=== PATIENT | female | born 1990 | race African-American/Black ===

== ENCOUNTER 2016-11-25 11:18 | Emergency (ER) | payer MEDICAID ==
[~2016-11-25] VITALS: Ht 157.5 cm; Wt 51.0 kg
[~2016-11-25 11:18] MED LIST: MACR100C PO; PRENCAP10 PO; [UNRECOGNIZED DRUG - CODE] PV
[2016-11-25 11:20] VITALS: BP 138/92; PULSE 86; RESP 15; TEMP 98.2; O2SAT 98
--- NOTE | 2016-11-25 12:23 | PD ---
HPI Chief Complaint: ENT Complaint Time Seen by Provider: 12:21 Travel History International Travel<30 days: No Contact w/Intl Traveler<30days: No Traveled to known affect area: No History of Present Illness HPI Patient comes in complaining of generalized weakness ongoing for 5 days and sore throat that began last night. Patient reports that her infant son was diagnosed with the flu yesterday. Patient denies any fevers, nausea, vomiting, chest pain, shortness of breath, headache, neck pain, diarrhea, abdominal pain, or breast-feeding. Patient denies any radiation of her throat pain describes as just a funny feeling. Denies doing anything for this. Denies anything making it better or worse. PFSH Past Medical History Medical History: Denies Significant Hx Diminished Hearing: No ?: Not LMP: 11/2016 : 1 Para: 0 Miscarriage: 0 : 0 Social History Alcohol Use: No Tobacco Use: No Substance Use: No (PT DENIES) Allergies-Medications (Allergen,Severity, Reaction): Coded Allergies: No Known Allergies (Unverified , 11/25/16) Reported Meds & Prescriptions Reported Meds & Active Scripts Active Tamiflu (Oseltamivir Phosphate) 75 Mg Cap 75 Mg PO BID 5 Days Review of Systems Except as stated in HPI: all other systems reviewed are Neg Physical Exam Narrative GENERAL: Well-developed, well nourished, in no acute distress, and non-ill appearing. SKIN: Warm and dry. HEAD: Atraumatic. Normocephalic. EYES: Pupils equal and round. EOMI. No scleral icterus. No injection or drainage. ENT: No nasal bleeding or discharge. Mucous membranes pink and moist. Tympanic membranes pearly duff bilaterally. Posterior pharynx erythematous without exudate. Uvula is midline. No tenderness to facial sinuses to palpation. NECK: Trachea midline. No cervical lymphadenopathy. Supple. No nuclear rigidity. CARDIOVASCULAR: Regular rate and rhythm. No murmur appreciated. RESPIRATORY: No accessory muscle use. No respiratory distress. Clear to auscultation. Breath sounds equal bilaterally. MUSCULOSKELETAL: No obvious deformities. No clubbing. No cyanosis. No edema. Full range of motion. NEUROLOGICAL: Awake and alert. No obvious cranial nerve deficits. Motor grossly within normal limits. Normal speech. PSYCHIATRIC: Appropriate mood and affect; insight and judgment normal. Data Data Last Documented VS Vital Signs Date Time Temp Pulse Resp B/P Pulse Ox O2 Delivery O2 Flow Rate FiO2 11/25/16 11:20 98.2 86 15 138/92 98 Orders Group A Rapid Strep Screen (11/25/16 12:20) Strep Culture (Group A) (11/25/16 12:30) MDM Medical Decision Making Medical Screen Exam Complete: Yes Emergency Medical Condition: Yes Differential Diagnosis Influenza, strep pharyngitis, viral pharyngitis, other Narrative Course Patient looks great. Patients symptom complex is consistent with Influenza, or flu-like illness. The patient is tolerating fluids and is well hydrated. There is no evidence to suggest secondary infection (pneumonia, sepsis/bacteremia, etc.) at this time. I discussed with the patient, diagnosis, and plan of care and to follow up with the patients primary physician. I discussed with the patient regarding testing, even if rapid influenza negative, I would suspect false negative. I discussed with the patient initiating Tamiflu and the patient agreed with plan. The patient was instructed to return if the worsens in anyway , especially if not tolerating fluids, increased pain or swelling, difficulty swallowing or breathing, or as needed. The patient agreed with plan. Patient in no obvious distress upon re-evaluation. All pertinent laboratory result(s) discussed with patient. Patient was asked if they wanted to speak to my attending, which the patient did not wish to do at this time. Any questions/ concerns in reference to patient diagnosis/condition discussed and clarified prior to patient's discharge. Reinforced sheer importance of close follow up with patient's primary physician or primary care clinic. Instructed patient to return to ED immediately, if symptoms return/worsen. Pt showed understanding of above instructions. Further instructions and recommendations were detailed in discharge paperwork. Pt ambulated without difficulty out of ED at discharge. Diagnosis Primary Impression: Influenza Patient Instructions: General Instructions, Influenza (DC) Additional Instructions: Follow-up with your primary care physician in 2-3 days for reevaluation. Take all medication as prescribed. Use [id number] Tylenol and/or ibuprofen as needed for pain and/or fevers. Follow instructions on the packaging. Drink plenty of non-caffeinated and nonalcoholic fluids. Return to the emergency department if symptoms get worse. Med/Other Pt SpecificInfo: Prescription(s) given Scripts Oseltamivir (Tamiflu)75 Mg Cap75 Mg PO BID 5 Days Ref 0 Prov:Brina Merino MD 11/25/16 Disposition: 01 DISCHARGE HOME Condition: Stable Chaim Macias Nov 25, 2016 12:23
[2016-11-25] MEDS ORDERED: OSEL75 PO (13:24)
== END 2016-11-25 13:35 | disposition home or self-care (01) ==
LOC: NEPB 11:18
DX: J11.1 Influenza due to unidentified influenza virus with other respiratory manifestations (principal)
CPT/HCPCS: 87081; 87880; 99283

== ENCOUNTER 2017-04-22 20:57 | Emergency (ER) | payer MEDICAID ==
[~2017-04-22] VITALS: Ht 157.5 cm; Wt 51.0 kg
[~2017-04-22 20:57] MED LIST changes: -MACR100C PO; +OSEL75 PO; -PRENCAP10 PO; -[UNRECOGNIZED DRUG - CODE] PV
[2017-04-22 20:59] VITALS: BP 138/59; PULSE 86; RESP 16; TEMP 98.6; O2SAT 98
--- NOTE | 2017-04-22 21:38 | PD ---
HPI Chief Complaint: Injury Time Seen by Provider: 21:36 Travel History International Travel<30 days: No Contact w/Intl Traveler<30days: No Traveled to known affect area: No History of Present Illness HPI Patient comes in complaining of right wrist pain began 2 hours prior to arrival. Patient denies any known injury. Patient describes pain as feeling as though someone hit her in the wrist but denies any trauma. Pain radiates into the hand. Pain is worse with certain movement. Patient denies anything making it better. Patient denies doing anything for this prior coming to the emergency department. [facility] Past Medical History Medical History: Denies Significant Hx Diminished Hearing: No Immunizations Current: Yes Tetanus Vaccination: < 5 Years Influenza Vaccination: Yes ?: Unknown LMP: 04/15/17 : 1 Para: 1 Miscarriage: 0 : 0 Past Surgical History Surgical History: No Previous Surgery Social History Alcohol Use: No Tobacco Use: No Substance Use: No Allergies-Medications (Allergen,Severity, Reaction): Coded Allergies: No Known Allergies (Unverified , 04/22/17) Reported Meds & Prescriptions Reported Meds & Active Scripts Active Tamiflu (Oseltamivir Phosphate) 75 Mg Cap 75 Mg PO BID 5 Days Review of Systems Except as stated in HPI: all other systems reviewed are Neg Physical Exam Narrative GENERAL: Well-developed, well nourished, in no acute distress, and non-ill appearing. SKIN: Focused skin assessment warm and dry. HEAD: Atraumatic. Normocephalic. EYES: Pupils equal and round. EOMI. No scleral icterus. No injection or drainage. ENT: No nasal bleeding or discharge. Mucous membranes pink and moist. NECK: Trachea midline. Supple. No nuclear rigidity. CARDIOVASCULAR: Radial pulses 2+, equal, and intact bilaterally. Capillary refill less than 2 seconds. RESPIRATORY: No accessory muscle use. No respiratory distress. MUSCULOSKELETAL: No obvious deformities. No clubbing. No cyanosis. No edema. Full range of motion. Negative Tinel and Phalen's test. NEUROLOGICAL: Awake and alert. No obvious cranial nerve deficits. Motor grossly within normal limits. Normal speech. PSYCHIATRIC: Appropriate mood and affect; insight and judgment normal. Data Data Last Documented VS Vital Signs Date Time Temp Pulse Resp B/P Pulse Ox O2 Delivery O2 Flow Rate FiO2 04/22/17 20:59 98.6 86 16 138/59 98 Room Air Orders Wrist, Complete ([id number]) (04/22/17 ) Ice/Cold Pack (04/22/17 21:35) Splint Or Brace Apply/Monitor (04/22/17 22:04) [facility] Medical Decision Making Medical Screen Exam Complete: Yes Emergency Medical Condition: Yes Interpretation(s) Wrist x-ray read by the radiologist shows: No acute fracture. Differential Diagnosis Fracture, strain, contusion, carpal tunnel syndrome, avascular necrosis, other Narrative Course There is no clinical evidence for fracture. There is no clinical evidence to suspect bony injury by exam. Radiographic examination revealed no fracture seen at this time. No obvious ligamental injury or internal derangement is noted at this time. The distal extremity appears neurovascularly intact, without evidence of neurovascular injury nor compartment syndrome. Tendon exam also was intact. The effected limb was splinted. The patient was discharged and given warnings for vascular compromise. The patient is to follow up with PCP. The patient agrees with plan. Patient in no obvious distress upon re-evaluation. All pertinent Radiology result(s) discussed with patient. Any questions/concerns in reference to patient diagnosis/condition discussed and clarified prior to patient's discharge. Reinforced sheer importance of close follow up with patient's primary physician or primary care clinic. Instructed patient to return to ED immediately, if symptoms return/worsen. Pt showed understanding of above instructions. Further instructions and recommendations were detailed in discharge paperwork. Pt ambulated without difficulty out of ED at discharge. Diagnosis Primary Impression: Strain of left wrist Qualified Code: S66.912A - Strain of left wrist, initial encounter Patient Instructions: General Instructions, Splint Care (ED), Wrist Injury (ED) , Wrist Sprain (DC) Additional Instructions: Follow-up with your primary care physician and/or hand surgeon in 3-4 days for reevaluation. Use [id number] Tylenol and/or ibuprofen as needed for pain. Follow instructions on hepatic. Apply ice to affected area 20 minutes prior as needed for pain. Wear wrist brace as needed for comfort. Return to the emergency department if symptoms get worse. Disposition: 01 DISCHARGE HOME Condition: Stable Chaim Macias Apr 22, 2017 21:38
--- NOTE | 2017-04-22 21:49 | RADRPT ---
EXAM DATE/TIME: 04/22/2017 21:45 [facility] COMPARISON: No previous studies available for comparison. INDICATIONS : Right wrist pain on lateral side, no known injury. MEDICAL HISTORY : None. SURGICAL HISTORY : None. ENCOUNTER: Initial ACUITY: 1 day PAIN SCORE: 6/10 LOCATION: Right wrist. FINDINGS: Three view examination of the right wrist demonstrates no soft tissue swelling, dislocation, or fract ure. The carpal bones are in normal alignment. The joint spaces are maintained. Bony mineralizatio n is normal. CONCLUSION: No acute fracture. Christopher Little MD on April 22, 2017 at 21:47 Board Certified Radiologist. This report was verified electronically.
== END 2017-04-22 22:29 | disposition home or self-care (01) ==
LOC: NEPD 20:57
DX: S66.912A Strain of unspecified muscle, fascia and tendon at wrist and hand level, left hand, initial encounter (principal); M25.531 Pain in right wrist; X58.XXXA Exposure to other specified factors, initial encounter
CPT/HCPCS: 73110; 99283; L3908

== ENCOUNTER 2017-09-13 11:17 | Emergency (ER) | payer MEDICAID ==
[2017-09-13 11:21] VITALS: BP 106/68; PULSE 83; RESP 22; TEMP 98.7; O2SAT 100
[2017-09-13 12:15] LABS: AUTOMATED NEUTROPHIL # 6.6 TH/MM3 (1.8-7.7); BASOPHIL # 0.1 TH/MM3 (0-0.2); BASOPHIL % 0.6 % (0.0-2.0); EOSINOPHIL % 0.5 % (0.0-4.0); HEMATOCRIT 39.3 % (35.0-46.0); HEMO FLAGS DIFF FINAL; LYMPH % 22.4 % (9.0-44.0); LYMPHOCYTE # 2.1 TH/MM3 (1.0-4.8); MEAN CORPUSCULAR HEMOGLOBIN 28.9 PG (27.0-34.0); MEAN CORPUSCULAR HGB CONC 33.6 % (32.0-36.0); MONO % 7.1 % (0.0-8.0); NEUT % 69.4 % (16.0-70.0); PLATELET COUNT 217 TH/MM3 (150-450); RED BLOOD COUNT 4.57 MIL/MM3 (4.00-5.30); RED CELL DISTRIBUTION WIDTH 13.5 % (11.6-17.2); WHITE BLOOD COUNT 9.5 TH/MM3 (4.0-11.0)
[2017-09-13 12:20] LABS: BLOOD, URINE NEG (NEG); COMMENT (UR) CULT NOT INDICATED; CULTURE IF INDICATED CULT NOT INDICATED; GLUCOSE,URINE NEG (NEG); KETONE, URINE NEG (NEG); MUCUS URINE FEW /lpf (OCC); NITRITE,URINE NEG (NEG); PH, URINE 5.5 (5.0-8.5); SQUAMOUS EPITHELIAL CELL URINE 11 /hpf (0-5); URINE COLOR YELLOW (YELLW/STRAW)
[2017-09-13 12:37] LABS: ALT (GPT) 11 U/L (10-53); ANION GAP 5 MEQ/L (5-15); AST (GOT) 13 U/L (15-37); BICARBONATE 25.1 MEQ/L (21.0-32.0); CHLORIDE 107 MEQ/L (98-107); GLOMERULAR FILTRATION RATE 141 ML/MIN (>89); POTASSIUM 3.6 MEQ/L (3.5-5.1); SODIUM (NA) 137 MEQ/L (136-145)
[2017-09-13 12:44] LABS: ALKALINE PHOSPHATASE 74 U/L (45-117); BLOOD UREA NITROGEN 19 MG/DL (7-18); TOTAL BILIRUBIN ADULT 1.5 MG/DL (0.2-1.0)
--- NOTE | 2017-09-13 13:08 | PD ---
HPI Chief Complaint: General Weakness Time Seen by Provider: 12:51 Travel History International Travel<30 days: No Contact w/Intl Traveler<30days: No Traveled to known affect area: No History of Present Illness HPI 27-year-old female presents to the emergency department with complaint of feeling dizzy, nauseated, tired and feeling weak times one week. Reports left upper quadrant abdominal pain that is intermittent and denies abdominal pain at this time. Says it comes and goes. Denies dysuria, urinary frequency. Denies fever, vomiting. Denies vaginal discharge or odor. Denies recent illness to include nasal congestion, throat pain. Denies chest pain, shortness of breath. Has started taking qgnx-isz-[id number] vitamins to help with her symptoms. Menstrual period was the end of July. Was supposed received the Depo- Provera injection in July and did not. Took a test last week and doesn't know the results of it because apparently she didn't wait long enough to read it. Does not have an social primary care provider. No known allergies. Denies significant past medical history. No other medical complaints. No other modifying factors or associated signs and symptoms. PFSH Past Medical History Medical History: Denies Significant Hx Diminished Hearing: No Immunizations Current: Yes Tetanus Vaccination: > 5 Years Influenza Vaccination: No ?: Not : 1 Para: 1 Miscarriage: 0 : 0 Past Surgical History Surgical History: No Previous Surgery Social History Alcohol Use: Yes (OCASSIONALLY) Tobacco Use: No Substance Use: No Allergies-Medications (Allergen,Severity, Reaction): Coded Allergies: No Known Allergies (Unverified Adverse Reaction, Unknown, 09/13/17) Reported Meds & Prescriptions Reported Meds & Active Scripts Active No Active Prescriptions or Reported Medications Review of Systems Except as stated in HPI: all other systems reviewed are Neg Physical Exam Narrative GENERAL: Well-nourished, well-developed black female patient, in no acute distress SKIN: Warm and dry. HEAD: Atraumatic. Normocephalic. EYES: Pupils equal and round. No scleral icterus. No injection or drainage. ENT: Mucosa pink and moist. Airway patent. NECK: Trachea midline. CARDIOVASCULAR: Regular rate and rhythm. No murmur appreciated. RESPIRATORY: No accessory muscle use. Sounds clear and equal bilaterally. No retractions or tachypnea. GASTROINTESTINAL: Abdomen soft, non-tender, nondistended. Active 4 quadrants. Not rigid. No guarding. BACK: No CVA tenderness. MUSCULOSKELETAL: No obvious deformities. No clubbing. No cyanosis. No edema. NEUROLOGICAL: Awake and alert. Oriented 3. No obvious cranial nerve deficits. Motor grossly within normal limits. Normal speech. PSYCHIATRIC: Appropriate mood and affect; insight and judgment normal. Data Data Last Documented VS Vital Signs Date Time Temp Pulse Resp B/P (MAP) Pulse Ox O2 Delivery O2 Flow Rate FiO2 09/13/17 12:43 83 16 99 Room Air 09/13/17 11:21 98.7 106/68 (81) Orders Orders Ed Urine Pregnancytest Poc (09/13/17 11:33) Complete Blood Count With Diff (09/13/17 11:33) Comprehensive Metabolic Panel (09/13/17 11:33) Urinalysis - C+S If Indicated (09/13/17 11:33) Ed Discharge Order (09/13/17 13:08) Labs Laboratory Tests Test 09/13/17 11:50 09/13/17 11:58 White Blood Count 9.5 TH/MM3 Red Blood Count 4.57 MIL/MM3 Hemoglobin 13.2 GM/DL Hematocrit 39.3 % Mean Corpuscular Volume 86.0 FL Mean Corpuscular Hemoglobin 28.9 PG Mean Corpuscular Hemoglobin Concent 33.6 % Red Cell Distribution Width 13.5 % Platelet Count 217 TH/MM3 Mean Platelet Volume 11.0 FL Neutrophils (%) (Auto) 69.4 % Lymphocytes (%) (Auto) 22.4 % Monocytes (%) (Auto) 7.1 % Eosinophils (%) (Auto) 0.5 % Basophils (%) (Auto) 0.6 % Neutrophils # (Auto) 6.6 TH/MM3 Lymphocytes # (Auto) 2.1 TH/MM3 Monocytes # (Auto) 0.7 TH/MM3 Eosinophils # (Auto) 0.0 TH/MM3 Basophils # (Auto) 0.1 TH/MM3 CBC Comment DIFF FINAL Differential Comment Blood Urea Nitrogen 19 MG/DL Creatinine 0.62 MG/DL Random Glucose 72 MG/DL Total Protein 7.5 GM/DL Albumin 3.5 GM/DL Calcium Level 8.8 MG/DL Alkaline Phosphatase 74 U/L Aspartate Amino Transf (AST/SGOT) 13 U/L Alanine Aminotransferase (ALT/SGPT) 11 U/L Total Bilirubin 1.5 MG/DL Sodium Level 137 MEQ/L Potassium Level 3.6 MEQ/L Chloride Level 107 MEQ/L Carbon Dioxide Level 25.1 MEQ/L Anion Gap 5 MEQ/L Estimat Glomerular Filtration Rate 141 ML/MIN Urine Color YELLOW Urine Turbidity HAZY Urine pH 5.5 Urine Specific [place] 1.030 Urine Protein NEG mg/dL Urine Glucose (UA) NEG mg/dL Urine Ketones NEG mg/dL Urine Occult Blood NEG Urine Nitrite NEG Urine Bilirubin NEG Urine Urobilinogen 2.0 MG/DL Urine Leukocyte Esterase NEG Urine RBC LESS THAN 1 /hpf Urine WBC 1 /hpf Urine Squamous Epithelial Cells 11 /hpf Urine Mucus FEW /lpf Microscopic Urinalysis Comment CULT NOT INDICATED MDM Medical Decision Making Medical Screen Exam Complete: Yes Emergency Medical Condition: Yes Medical Record Reviewed: Yes Differential Diagnosis Hypothyroidism, fatigue, , electrolyte imbalance, anemia, anorexia Narrative Course A 7-year-old female with fatigue times one week. Physical exam is unremarkable. Last menstrual period was in July. UPT, CBC, CMP, urinalysis ordered. 1300: CBC, CMP, urinalysis remarkable. UPT negative. Patient provided information for [facility] clinic for outpatient follow-up. Dr. Mooney agrees with discharge. Instructed patient to follow up with primary care provider. Patient verbalizes understanding and agreement with treatment plan. Patient is medically cleared and stable for discharge. Discussed reasons to return to the emergency department. Patient agrees with treatment plan. The patients vital signs are stable and the patient is stable for outpatient follow-up and treatment. Patient discharged home, stable and in no acute distress. Diagnosis Primary Impression: Fatigue Qualified Codes: R53.83 - Other fatigue Referrals: [facility] Primary Care Physician Patient Instructions: Fatigue (ED), General Instructions, Weakness (ED) Departure Forms: Tests/Procedures, Work Release Enter return to work date: Sep 14, 2017 Additional Instructions: Eat 3 healthy meals per day with snacks in between Drink plenty of fluids [id number] vitamins and supplements as directed and as needed Follow-up with primary care provider Return to the emergency department immediately with worsening of symptoms Med/Other Pt SpecificInfo: No Change to Meds, No Meds Exist/No RX given Scripts No Active Prescriptions or Reported Meds Disposition: DISCHARGE HOME Condition: Stable Fransisca Monzon Sep 13, 2017 13:08
[2017-09-13 13:25] VITALS: BP 100/78; TEMP 97.8
== END 2017-09-13 13:25 | disposition home or self-care (01) ==
LOC: NEPD 11:17
DX: R53.83 Other fatigue (principal); R42 Dizziness and giddiness; R11.0 Nausea; R10.12 Left upper quadrant pain
CPT/HCPCS: 80053; 81001; 84703; 85025; 99283

== ENCOUNTER 2017-11-06 12:14 | Emergency (ER) | payer MEDICAID ==
[2017-11-06 12:16] VITALS: BP 114/57; TEMP 99.5; O2SAT 100
[2017-11-06 12:17] VITALS: BP 114/57; PULSE 99; RESP 18; TEMP 99.5; O2SAT 100
[2017-11-06] MEDS ORDERED: TYLE325T PO (13:29)
--- NOTE | 2017-11-06 13:36 | PD ---
HPI Chief Complaint: Cold / Flu Symptoms Time Seen by Provider: 13:04 Travel History International Travel<30 days: No Contact w/Intl Traveler<30days: No Traveled to known affect area: No History of Present Illness HPI 27-year-old female presents the ED for evaluation of 3 day history of sore throat, subjective fevers, body aches. She denies ear pain, cough, sinus congestion, difficulty swallowing her own secretions, nausea, vomiting. She got this years flu shot. She denies sick contacts. No treatment attempted at home. PFSH Past Medical History Diminished Hearing: No Immunizations Current: Yes ?: Not LMP: 11/01/2017 : 1 Para: 1 Miscarriage: 0 : 0 Social History Alcohol Use: Yes (OCASSIONALLY) Tobacco Use: No Substance Use: No Allergies-Medications (Allergen,Severity, Reaction): Coded Allergies: No Known Allergies (Unverified Adverse Reaction, Unknown, 11/06/17) Reported Meds & Prescriptions Reported Meds & Active Scripts Active Penicillin V Potassium 500 Mg Tab 500 Mg PO Q6H 10 Days Reported Tylenol (Acetaminophen) 325 Mg Tab 325 Mg PO Q4H PRN Review of Systems Except as stated in HPI: all other systems reviewed are Neg Physical Exam Narrative GENERAL: Well-nourished, well-developed nontoxic appearing female in no acute distress. SKIN: Warm and dry. HEAD: Normocephalic. Atraumatic. EYES: No scleral icterus. No injection or drainage. PERRLA. EOMI. ENT: Pearly duff tympanic membranes bilaterally. Nasal mucosa is moist. Oropharynx posterior erythema. Tonsils 1+ bilaterally. Scant exudate. Uvula midline. Airway patent. NECK: Supple, trachea midline. No JVD. Positive tender anterior cervical lymphadenopathy. CARDIOVASCULAR: Regular rate and rhythm without murmurs, gallops, or rubs RESPIRATORY: Breath sounds clear and equal bilaterally. No accessory muscle use. GASTROINTESTINAL: Abdomen soft, non-tender, nondistended. + Bowel sounds MUSCULOSKELETAL: No cyanosis, or edema. BACK: Nontender without obvious deformity. No CVA tenderness. Data Data Last Documented VS Vital Signs Date Time Temp Pulse Resp B/P (MAP) Pulse Ox O2 Delivery O2 Flow Rate FiO2 11/06/17 12:17 99.5 99 18 114/57 (76) 100 Orders Orders Group A Rapid Strep Screen (11/06/17 12:26) Influenzae A/B Antigen (11/06/17 12:26) Acetaminophen (Tylenol) (11/06/17 13:45) MDM Medical Decision Making Medical Screen Exam Complete: Yes Emergency Medical Condition: Yes Differential Diagnosis Pharyngitis versus strep pharyngitis versus viral syndrome versus other Narrative Course 37-year-old female presents to the ED for evaluation of 3 day history of sore throat, subjective fevers, body aches. Vitals reviewed. Patient's temp 99.5 on presentation. Physical exam reveals one plus erythematous tonsils with scant exudates and positive anterior cervical lymphadenopathy. Exam otherwise unremarkable. Flu swab negative. Strep swab positive. Patient's prescribed penicillin VK 500 mg 3 times a day 10 days. She was administered a dose of Tylenol in the ED. She is instructed to take every antibiotic pill until they' re all gone, continue treating fevers with OTC medications as needed, return to the ED for worsening symptoms, otherwise follow up with the primary care provider. She is stable and discharged home. Diagnosis Primary Impression: Strep pharyngitis Referrals: Primary Care Physician Patient Instructions: General Instructions, Strep Throat (ED) Additional Instructions: Rest, hydrate. Push fluids such as sports drinks, Pedialyte, popsicles, clear broth. Begin antibiotics today and take them until every pill is gone. Alternating Motrin and Tylenol every 4-6 hours as needed for continued fever, body aches. Replace toothbrush at the end of this illness. Follow-up with the primary care provider this week. Return to the ED for any urgent or emergent medical condition. Med/Other Pt SpecificInfo: Prescription(s) given Scripts Penicillin V Potassium (Penicillin V Potassium) 500 Mg Tab 500 MG PO Q6H for Infection for 10 Days, #40 TAB 0 Refills Prov: Sung Fregoso MD 11/06/17 Disposition: 01 DISCHARGE HOME Condition: Stable Chante Neff Nov 06, 2017 13:36
[2017-11-06] MEDS ORDERED: PENI500T PO (13:38)
[2017-11-06] MEDS ORDERED: ACETAMINOPHEN 325 MG TAB PO ONE (13:45)
== END 2017-11-06 13:59 | disposition home or self-care (01) ==
LOC: NEPK 12:14
DX: J02.0 Streptococcal pharyngitis (principal)
CPT/HCPCS: 87804; 87880; 99283